=== PATIENT | male | born 1950 | race Caucasian/White ===

== ENCOUNTER → 2018-06-15 | Outpatient (CLI) | payer OTHER, MEDICARE | LOC: BHFA 13:30 | PROVIDERS: ATTEND Internal Medicine Interventional Cardiology | DX: I20.8 Other forms of angina pectoris (principal) ==

== ENCOUNTER 2018-06-16 07:31 | Day surgery (SDC) | payer OTHER, MEDICARE ==
[2018-06-16] MEDS ORDERED: NS 1,000 ML IV ONE (07:32)
[2018-06-16] MEDS ORDERED: diphenhydrAMINE 25 MG CAP PO ONE (07:32)
[2018-06-16] MEDS ORDERED: ASPIRIN EC 325 MG TAB PO ONE (07:32)
[2018-06-16] MEDS ORDERED: FAMOTIDINE 20 MG TAB PO ONE (07:32)
[2018-06-16] MEDS ORDERED: DIAZEPAM 5 MG TAB PO ONE (07:32)
--- NOTE | 2018-06-16 07:56 | PDHPUP ---
History & Physical Update H&P update statement: This history and physical update is based on an assessment of the patient which was completed after admission or registration (within 24 hours), but prior to the surgery/procedure. H&P update: H&P reviewed & patient examined, no change in patient's condition since H&P completed
--- NOTE | 2018-06-16 07:56 | PDPROPOC ---
Sedation Plan of Care Sedation Plan of Care: vital signs stable, mental status noted, patient educated of risks, benefits, alternatives, patient can tolerate sedation ASA Classification: ASA 2 Planned drugs: fentanyl, midazolam Mallampati Score: Class 1 Mallampati Reference Image: Patient passed 3-3-2 rule?: Yes
[2018-06-16 08:18] LABS: PLATELET COUNT 267 10^3/uL (150-400)
[2018-06-16 08:27] LABS: INR 0.9 (0.83-1.16); PROTIME(PATIENT) 12.4 SEC (12.0-15.0)
[2018-06-16] MEDS ORDERED: LIDOCAINE 1% 300 MG/30 ML SDV ONE (09:07)
[2018-06-16] MEDS ORDERED: HEPARIN 10,000 UNIT/10 ML MDV (1,000 UNIT/ML) ONE (09:08)
[2018-06-16] MEDS ORDERED: fentaNYL 100 MCG/2 ML INJ ONE (09:08)
[2018-06-16] MEDS ORDERED: VERAPAMIL 5 MG/2 ML VIAL ONE (09:08)
[2018-06-16] MEDS ORDERED: MIDAZOLAM 2 MG/2 ML VIAL ONE (09:08)
[2018-06-16] MEDS ORDERED: IOPAMIDOL (ISOVUE-370) 150 ML BTL IV ONE (09:09)
--- NOTE | 2018-06-16 10:36 | PDDXCAT ---
Diagnostic Cath Note - . Date: 06/16/18 Print Production Associate: Octavio Indication: CCC Class III and IV angina on medical treatment - Procedure Access: right wrist Procedure: left heart catheterization, coronary angiography, left ventriculogram , other (Ascending aortogram/strong family history of thoracic aortic aneurysms and sudden ) - Materials Left Heart Cath size: 5F Left Heart Cath materials: JL3.5, JR4.0, pigtail - Findings-Left Heart Catheterization LM: Unobstructed LAD: Calcific arteriosclerosis without obstruction LCX: Calcific arteriosclerosis without obstruction RCA: Dominant vessel: Unobstructed EDP: 10 mm of mercury LVEF: 65% Wall motion: Normal. Aortogram reveals no significant dilatation of the aorta within the field of view. Complications: None Estimated blood loss: <50ml Closure method: TR Band Assessment: No evidence of thoracic aortic aneurysm. Nonobstructive mild calcific arteriosclerosis. Preserved left ventricular systolic function with normal filling pressures Plan: Aggressive secondary prevention clinical follow-up
--- NOTE | 2018-06-16 16:02 | ECHO ---
[email or web address] [address] [address] Main: [phone] Fax: Transthoracic Echocardiogram Name: SUSAN COLORADO MR#: [id number] Study Date: 06/16/2018 Study Time: 09:56 AM Date of : 1950 Age: 67 year(s) Height: ( ) Weight: ( ) BSA: Gender: Male Examination: Echo Indication: Pre Cath, Murmur, laborer cutting tool Image Quality: Contrast: Requested by: Gary Cunningham BP: / Heart Rate: Rhythm: Indication: Pre Cath, Murmur, laborer cutting tool Procedure Staff Reference Services Head: Samir Mercado RDCS Reading Physician: Xu Garcia MD Requesting Provider: Conclusions: Normal size left ventricle. EF is 76 %. No regional wall motion abnormality. The left atrium is mildly dilated. Mild mitral valve leaflet calcification is present. Trivial mitral valve regurgitation. Mild aortic cusp calcification is noted. Mild to moderate aortic valve regurgitation. No aortic valve stenosis is present. There is no significant tricuspid valve regurgitation. No pericardial effusion. No prior study for comparison. Measurements: Chambers Valvular Assessment AV/MV Valvular Assessment TV/PV Normal Normal Normal Name Value Range Name Value Range Name Value Range Ao Stephanie (MM): 3.5 cm (2.2 cm-3.7 AV Vmax: 1.76 m/s (1 m/s-1.7 PV Vmax: 0.83 m/s (0.6 m/s-0.9 cm) m/s) m/s) IVSd (2D): 0.9 cm (0.6 cm-1.1 AV maxP mmHg ( - ) PV PGmax: 3 mmHg ( - ) cm) AV meanP mmHg ( - ) LVDd (2D): 4.9 cm (4.2 cm-5.9 LVOT Vmax: 0.88 m/s (0.7 m/s-1.1 cm) m/s) LVDs (2D): 2.7 cm (2.1 cm-4 JOVAN (Vmax): 1.6 cm2 ( - ) cm) JOVAN (VTI): 1.7 cm ( - ) LVPWd (2D): 1.0 cm (0.6 cm-1 AR (PHT): 742 ms ( - ) cm) LVOTd 2.0 cm 2.0 cm mm LVEF (2D): 76 (>=54 %) Patient: SSUAN COLORADO Study Date: 06/16/2018 Page 1 of 2 09:56 AM Continued Measurements: Chambers Valvular Assessment AV/MV Name Value Name Value LADs Lon.3 cm AR Vmax: 3.88 cm/s LA Area: 20.3 cm2 LA Volume: 62 ml Findings: Left Ventricle: Normal size left ventricle. Normal global systolic LV function. EF is 76 %. No regional wall motion abnormality. Right Ventricle: Normal size right ventricle. Normal RV function. Left Atrium: The left atrium is mildly dilated. Right Atrium: The right atrium is normal in size. Mitral Valve: Mild mitral valve leaflet calcification is present. Trivial mitral valve regurgitation. Aortic Valve: Mild aortic cusp calcification is noted. The aortic valve is tri-leaflet. Mild to moderate aortic valve regurgitation. No aortic valve stenosis is present. Tricuspid Valve: The tricuspid valve is normal in appearance and function. There is no significant tricuspid valve regurgitation. Pulmonic Valve: The pulmonic valve is normal in appearance and function. Aorta: The aorta is normal. Pericardium: No pericardial effusion. (No Signature Object) Patient: SUSAN COLORADO Study Date: 06/16/2018 Page 2 of 2 09:56 AM [id number]
--- NOTE | 2018-06-16 17:48 | CPEKG ---
Test Reason : OPEN Blood Pressure : / mmHG Vent. Rate : 052 BPM Atrial Rate : 052 BPM P-R Int : 204 ms QRS Dur : 094 ms QT Int : 432 ms P-R-T Axes : 075 073 052 degrees QTc Int : 402 ms Sinus rhythm Confirmed by Nghia Alas ([id number]) on 06/16/2018 5:47:46 PM Referred By: Confirmed By:Nghia Alas
== END 2018-06-16 13:33 | disposition home or self-care (01) ==
LOC: FCATH 07:31
PROVIDERS: ATTEND Internal Medicine Interventional Cardiology
PROC: B2151ZZ Fluoroscopy of Left Heart using Low Osmolar Contrast (ICD-10-PCS; principal; 2018-06-16)
PROC: 4A023N7 Measurement of Cardiac Sampling and Pressure, Left Heart, Percutaneous Approach (ICD-10-PCS; principal; 2018-06-16)
PROC: B2111ZZ Fluoroscopy of Multiple Coronary Arteries using Low Osmolar Contrast (ICD-10-PCS; principal; 2018-06-16)
DX: I25.119 Atherosclerotic heart disease of native coronary artery with unspecified angina pectoris (principal)
CPT/HCPCS: 93005; 93306; 93458; 93567; C1769; J1644; J2250; J3010; Q9967

== ENCOUNTER → 2018-10-19 | Outpatient (CLI) | payer OTHER, MEDICARE | LOC: CLAB 14:45 | PROVIDERS: ATTEND Physician Assistant Medical | DX: M16.12 Unilateral primary osteoarthritis, left hip (principal) | CPT/HCPCS: 73502-PO ==

== ENCOUNTER → 2018-11-28 | Outpatient (CLI) | payer OTHER, MEDICARE | LOC: EDSTATUS 07:10 → EMCIMAGING 18:57 | PROVIDERS: ATTEND Nurse Practitioner Family | DX: R05 Cough (principal); R06.02 Shortness of breath; Z87.891 Personal history of nicotine dependence ==

== ENCOUNTER → 2018-12-16 | Outpatient (CLI) | payer OTHER, MEDICARE | LOC: FIMAGING 12:34 | PROVIDERS: ATTEND Physician Assistant | DX: Z03.89 Encounter for observation for other suspected diseases and conditions ruled out (principal) ==

== ENCOUNTER 2019-02-03 12:01 | Inpatient (IN) | payer OTHER, MEDICARE ==
[~2019-02-03 12:01] MED LIST: ROPIVACAINE 0.2% 80 MG, EPINEPHrine 0.2 MG, KETOROLAC TROMETHAMINE 30 MG in SYRINGE 0 ML IU ONE; TRANEXAMIC ACID 3,000 MG in NS (SYRINGE) 50 ML IRR ONE; TRANEXAMIC ACID 3,000 MG/50 ML BAG IRR ONE
[2019-02-03] MEDS ORDERED: ACETAMINOPHEN 325 MG TAB PO ONE (12:32)
[2019-02-03] MEDS ORDERED: ceFAZolin 2 GM/DEXTROSE 100 ML IV ONE (12:32)
[2019-02-03] MEDS ORDERED: FAMOTIDINE 20 MG TAB PO ONE (12:32)
[2019-02-03] MEDS ORDERED: DEXAMETHASONE 4 MG/ML VIAL IVP ONE (12:32)
[2019-02-03] MEDS ORDERED: LIDOCAINE 1% 2 ML INJ ID PRN (12:33)
[2019-02-03] MEDS ORDERED: LR 1,000 ML IV ONE (12:33)
[2019-02-03] MEDS ORDERED: MIDAZOLAM 2 MG/2 ML VIAL IVP ONE (13:39)
[2019-02-03] MEDS ORDERED: PROMETHAZINE HCL 25 MG/ML INJ IVP PRN ×2 (13:39→15:39)
[2019-02-03] MEDS ORDERED: HYDROmorphONE/DILAUDID 1 MG/ML INJ IVP PRN (13:39)
[2019-02-03] MEDS ORDERED: fentaNYL 100 MCG/2 ML INJ IVP PRN (13:39)
[2019-02-03] MEDS ORDERED: ONDANSETRON 4 MG/2 ML VIAL IVP PRN ×2 (13:39→15:39)
[2019-02-03] MEDS ORDERED: NALOXONE HCL 0.4 MG/ML INJ IVP PRN (13:39)
[2019-02-03] MEDS ORDERED: oxyCODONE IR 5 MG TAB PO PRN ×2 (13:39→15:39)
[2019-02-03] MEDS ORDERED: MIDAZOLAM 2 MG/2 ML VIAL ONE (13:40)
--- NOTE | 2019-02-03 13:41 | PDANEPAE ---
ANE History of Present Illness L DADA ANE Past Medical History - Cardiovascular History Hx Hypertension: No Hx Arrhythmias: No Hx Chest Pain: No Hx Coronary Artery / Peripheral Vascular Disease: Yes Hx CHF / Valvular Disease: No Hx Palpitations: No - Pulmonary History Hx COPD: No Hx Asthma/Reactive Airway Disease: No Hx Recent Upper Respiratory Infection: Yes Hx Oxygen in Use at Home: No Hx Sleep Apnea: No Sleep Apnea Screening Result - Last Documented: Negative Pulmonary History Comment: FLU 11/2018 - Neurologic History Hx Cerebrovascular Accident: No Hx Seizures: No Hx Dementia: No - Endocrine History Hx Diabetes: No - Renal History Hx Renal Disorders: No - Liver History Hx Hepatic Disorders: No - Neurological & Psychiatric Hx Hx Neurological and Psychiatric Disorders: No - Cancer History Hx Cancer: No - Congenital Disorder History Hx Congenital Disorders: No - GI History Hx Gastrointestinal Disorders: No - Other Health History Other Health History: NONE - Chronic Pain History Chronic Pain: Yes (LT HIP,RT KNEE) - Surgical History Prior Surgeries: LT LEG ORIF. RT LEG CHANGED ANGLE OF LEG BY 15 DEGREES. RT KNEE SCOPE ANE Review of Systems Review of Systems: - Exercise capacity METS (RN): 6 METS ANE Patient History - Allergies Allergies/Adverse Reactions: No Known Allergies Allergy (Verified 01/21/19 13:43) - Home Medications Home Medications: NK [No Known Home Meds] 01/21/19 [Last Taken Unknown] - NPO status NPO Since - Liquids (Date): 02/03/19 NPO Since - Liquids (Time): 11:00 NPO Since - Solids (Date): 02/02/19 NPO Since - Solids (Time): 22:00 - Smoking Hx Smoking Status: Former smoker ANE Labs/Vital Signs - Vital Signs Blood Pressure: 125/78 Heart Rate: 51 Respiratory Rate: 16 O2 Sat (%): 98 Height: 173.99 cm Weight: 77.111 kg ANE Physical Exam - Airway Neck exam: FROM Mallampati Score: Class 2 Mouth exam: normal dental/mouth exam - Pulmonary Pulmonary: clear to auscultation - Cardiovascular Cardiovascular: regular rate and rhythym - ASA Status ASA Status: I ANE Anesthesia Plan Anesthesia Plan: spinal
[2019-02-03] MEDS ORDERED: PROPOFOL/EMULSION 500 MG/50 ML BOTTLE IV ONE (13:54)
[2019-02-03] MEDS ORDERED: PROPOFOL 200 MG/20 ML VIAL ONE (13:57)
[2019-02-03] MEDS ORDERED: BUPIVACAINE/DEXTROSE 7.5MG/ML 2 ML SPINAL AMP SP ONE (14:08)
[2019-02-03] MEDS ORDERED: ePHEDrine SULFATE 25 MG/5 ML SYR ONE (14:53)
[2019-02-03] MEDS ORDERED: DIPHENOXYLATE/ATROPINE LOMOTIL 1 TAB PO PRN (15:39)
[2019-02-03] MEDS ORDERED: MAGNESIUM HYDROXIDE 30 ML UDCUP PO PRN (15:39)
[2019-02-03] MEDS ORDERED: TEMAZEPAM 15 MG CAP PO PRN (15:39)
[2019-02-03] MEDS ORDERED: BISACODYL 10 MG SUPP PR PRN (15:39)
[2019-02-03] MEDS ORDERED: METOCLOPRAMIDE 10 MG/2 ML VIAL IVP PRN (15:39)
[2019-02-03] MEDS ORDERED: PROMETHAZINE HCL 25 MG SUPPR PR PRN (15:39)
[2019-02-03] MEDS ORDERED: POLYETHYLENE GLYCOL 3350 17 GM PKT PO PRN (15:39)
[2019-02-03] MEDS ORDERED: LACTULOSE 20 GM/30 ML UDCUP PO PRN (15:39)
[2019-02-03] MEDS ORDERED: ONDANSETRON DISINTEGRATING 4 MG TAB PO PRN (15:39)
[2019-02-03] MEDS ORDERED: CYCLOBENZAPRINE 10 MG TAB PO PRN (15:39)
[2019-02-03] MEDS ORDERED: diphenhydrAMINE 25 MG CAP PO PRN (15:39)
--- NOTE | 2019-02-03 15:40 | POSTOPPROG ---
Post Op Note Date of Operation: 02/03/19 Surgeon: Glenny Caballero Cord Maker: Josselyn Reyes PAC Anesthesiologist: Dr Manish Antonio Anesthesia: Spinal Pre-op Diagnosis: left hip OA Post-op Diagnosis: same Indication: left hip pain Procedure: LTHA Findings: severe OA of left hip Inf/Abcess present in the surg proc area at time of surgery?: No EBL: 50-100
--- NOTE | 2019-02-03 15:49 | POSTANESTH ---
Post Anesthetic Evaluation Cardiovascular Status: Normal, Stable Respiratory Status: Normal, Stable Level of Consciousness/Mental Status: Can Participate in Eval, Alert and Oriented Pain Control: Adequate, Prn Tx Ordered Nausea/Vomiting Control: Adequate, Prn Tx Ordered Complications Possibly Related to Anesthesia: None Noted
--- NOTE | 2019-02-03 15:54 | PDMN ---
Medical Necessity Medical necessity: [facility] IP only surgery; cpt 40513 L DADA
[2019-02-03] MEDS ORDERED: LR 1,000 ML IV SCH (16:00)
[2019-02-03] MEDS: ACETAMINOPHEN 325 MG TAB PO SCH (21:59)
[2019-02-03] MEDS: FAMOTIDINE 20 MG TAB PO SCH (22:00)
[2019-02-03] MEDS: SENNOSIDES/DOCUSATE SODIUM TAB PO SCH (22:00)
[2019-02-03] MEDS: ceFAZolin 2 GM/DEXTROSE 100 ML IV SCH (22:00)
[2019-02-03] MEDS: ASPIRIN 81 MG CHEWABLE TAB PO SCH (22:00)
[2019-02-04] MEDS: ACETAMINOPHEN 325 MG TAB PO SCH ×2 (04:26→11:09)
[2019-02-04] MEDS: ceFAZolin 2 GM/DEXTROSE 100 ML IV SCH (06:24)
[2019-02-04 07:43] VITALS: BP 105/60
--- NOTE | 2019-02-04 07:53 | SOAPPROG ---
SOAP Progress Note Assessment/Plan: Assessment: 68 year old male s/p left DADA, anterior approach - POD 1 Doing well Anemia - expected initially post-op, asymptomatic, continue to monitor Plan: Continue d/c planning - patient is doing better than expected, he will be going home today, will have support of his Continue PT efforts - WBAT, anterior hip precautions. Needs to be cleared by PT prior to d/c Continue oral pain medications - oxycodone, tylenol, celebrex, flexeril Continue VTE ppx - aspirin 81 mg BID, DONNY greene, SCDs 02/04/19 07:58 Subjective: Patient states he is doing good, he feels well enough to go home today. He will have the support of his at home. He denies SOB, CP, fever, chills. Objective: Vital Signs Temp Pulse Resp BP Pulse Ox 36.6 C 82 18 117/68 94 02/04/19 04:00 02/04/19 04:00 02/04/19 04:00 02/04/19 04:00 02/04/19 04:00 Laboratory Results 02/04/19 04:19 02/03/19 02/04/19 02/05/19 05:59 05:59 05:59 Intake Total 1070 Output Total 1200 Balance -130 Patient lying in bed, no acute distress. LLE: Wound dressings on the anterior aspect of the left hip are clean, dry and intact. Lower leg compartments are soft and nontender. He can actively DF and PF the left foot and great toe against resistance. Grossly NVI distally. ICD10 Worksheet Patient Problems: Problems Problem Status Onset Unilateral primary osteoarthritis, left hip Acute - ICD10 Problem Qualifiers (1) Unilateral primary osteoarthritis, left hip
--- NOTE | 2019-02-04 08:03 | PDDCSUM ---
Discharge Summary Discharge Summary: ADMISSION DIAGNOSIS: Left hip severe degenerative arthritis DISCHARGE DIAGNOSIS: Left hip severe degenerative arthritis OPERATION PERFORMED: February 03, 2019, Left total hip arthroplasty, anterior approach POSTOPERATIVE COMPLICATIONS: None CONDITION ON DISCHARGE: Improved HPI: The patient is a 68 year old male who has end-stage arthritis of his left hip. Clinical and radiographic features are consistent with this. Patient has failed attempts at conservative management, therefore, recommended operative left total hip replacement. DESCRIPTION OF HOSPITAL COURSE: The patient was admitted to the hospital on the morning of surgery and underwent a left total hip arthroplasty, anterior approach. Postoperatively, patient was treated with multimodal DVT prophylaxis, including aspirin, SCDs, DONNY hose. Patient was seen by PT and made good progress with ambulation and stairs. On the first post-operative day the patient s H&H was 13.1/39.9. Patient was able to void spontaneously. At the time of discharge, patient was afebrile, wound was clean and dry. Patient is walking with a walker. DISPOSITION: The patient is discharged home with the support of his and may have outpatient PT in approximately 3 weeks. Patient may progress to full weightbearing on the left lower extremity as tolerated. DONNY stockings for 2 weeks during the daytime. Aspirin 81 mg BID for 4 weeks. Patient has prescriptions for Celebrex, oxycodone, flexeril for pain control and muscle spasms. The patient will be seen by Dr. Babb office in approximately 3 weeks. If there are any problems, patient is to call Dr. Babb office.
[2019-02-04] MEDS: SENNOSIDES/DOCUSATE SODIUM TAB PO SCH (08:32)
[2019-02-04] MEDS: ASPIRIN 81 MG CHEWABLE TAB PO SCH (08:32)
[2019-02-04] MEDS: FAMOTIDINE 20 MG TAB PO SCH (08:32)
--- NOTE | 2019-02-04 09:31 | GOP ---
[f rep st] OPERATIVE REPORT DATE OF OPERATION: 02/03/2019 SURGEON: Rick Caballero MD SYRUP MAKER COOK: Alisson Reyes PA-C. ANESTHESIA: Spinal. PREOPERATIVE DIAGNOSIS: Left hip osteoarthritis. POSTOPERATIVE DIAGNOSIS: Left hip osteoarthritis. PROCEDURE PERFORMED: Total hip arthroplasty with x-ray. FINDINGS: ESTIMATED BLOOD LOSS: 200 cc. INDICATIONS: The patient has progressively worsening arthritis of the hip which has failed medical m anagement. The patient understands the treatment options including continued non-operative care and has selected surgical intervention. The patient has decided to undergo total hip arthroplasty via th e direct anterior approach, understanding the risks of the procedure including, but not limited to, n eurovascular injury, infection, persistent pain, component wear and loosening, deep venous thrombosis , pulmonary embolism, limb length inequality, hip instability (including dislocation), and intra-oper ative fractures. DESCRIPTION OF PROCEDURE: After proper identification of the patient including verification and radha ing the surgical site, the patient was brought to the operating room and placed in the supine positio n. All bony prominences were well padded. Anesthesia was induced without complication and intraveno us prophylactic antibiotics were administered prior to skin incision. The operative leg was placed in the Trumpf Arch table extension and the well leg in a Yellofin leg ho lder. The patient was prepped and draped in the usual sterile fashion. The C-arm was draped for int ra-operative fluoroscopy to check acetabular position, femoral component position including leg lengt h and femoral offset. Attention was then drawn to surgical exposure of the hip. An incision was made with a #10 Bard Joel r blade starting 3 cm lateral and 3 cm distal to the anterior superior iliac spine measuring 8-10 cm and coursing distally toward the greater trochanter. The skin and subcutaneous tissues were divided sharply down to the fascia ramirez. The fascia ramirez was incised in line with the skin incision exposing the underlying tensor fascia ramirez muscle. The muscle was bluntly elevated from the fascia and the f irst extracapsular Cobra retractor was placed laterally at the junction of the superior femoral neck and greater trochanter. The lateral femoral circumflex vessels were identified, cauterized, and divi ded with the Aquamantys bipolar cautery. The deep investing fascia of the TFL was divided to allow p regina mobilization of the muscle preventing damage during the retraction. The reflected head of the rectus femoris muscle was elevated off the anterior hip capsule and a medial Cobra retractor was plac ed just proximal to the lesser trochanter. The anterior capsulotomy was made sharply from the superolateral acetabulum to the saddle junction of the superior femoral neck and greater trochanter, then coursing inferomedial towards the lesser troc hanter. The retractors were then placed in the intracapsular position for femoral neck osteotomy. C orresponding to pre-operative templating, the osteotomy was made with the oscillating saw carefully p rotecting the greater trochanter and soft tissues. The femoral head was removed from the acetabulum with a corkscrew and confirmed to be severely arthritic with exposed bone, deformity and osteophytes. Similar findings were confirmed in the acetabulum. The Arch table extension was then placed in 40 degrees external rotation. Attention was then drawn to the acetabular preparation. After placement of the anterior and posterio r Cobra retractors outside the labrum and intracapsular, the circumferential labrum was removed sharp ly. The foveal contents were then removed and hemostasis obtained with cautery. The first reamer selected was sized using the removed femoral head. Reaming began with medialization and then commenced in 2 mm increments at 45 degrees of abduction and 15 degrees of anteversion using fluoroscopic navigation. Reaming ceased 1 mm less than the definitive acetabular component and tru esponded to the pre-operative templating. The final acetabular component was inserted using fluorosc opy to achieve proper orientation yielding excellent purchase and stability in the acetabulum. The f inal acetabular liner was then placed and its seating confirmed. Attention was then turned to the femur. The Arch table extension was placed in extension and adducti on, delivering the osteotomized femoral neck into the wound. A 2-pronged femoral elevator was placed at the calcar and another at the tip of the greater trochanter. The posterolateral capsule was rele ased with cautery allowing mobilization of the femur lateral and anterior for preparation. The exter nal rotators were visualized and preserved. A curette and rongeur were used to open the starting poi nt for broaching. Serial broaching started with the #0 broach and ended with the broach that exhibit ed excellent fit in the proximal femur. A change in pitch during mallet strikes was accompanied by t he inability to advance the broach any further. The trial reduction was performed and fluoroscopic n avigation was utilized to check limb length. Adjustments were made to equalize limb length according ly. After the final trials were accepted they were removed and the wound was copiously lavaged. The femo ral component was seated to the same depth as the final broach and the femoral head was impacted onto the clean trunnion. The hip was then reduced for the final time and once more fluoroscopy was used to check that limb length equality was achieved. The wound was irrigated and closed in layers, the fascia ramirez with 2-0 Quill, the subcutaneous tissue with 2-0 Quill, and the skin with Dermabond. Sterile dressings were applied. Final sharps and spon ge counts were accurate. The patient was then transferred to a hospital bed and brought to the [facility] room in stable condition. IMPLANTS: Accolade II size 5 at 125, acetabular component is a Trident II 54 mm , 36 mm, h ead is a Biolox delta 36 mm +2.5. /[id number]/MODL
--- NOTE | 2019-02-04 10:00 | ASMTLACE ---
LACE Length of stay for Answers: 1 day current admission Acuity / Level of Answers: Yes Care: Did the patient have an inpatient admission? Comorbidities - select Answers: Other Notes: elevated cholesterol all that apply # of Emergency department Answers: 0 visits in the last 6 months Score: 5 Date Signed: 02/04/2019 09:59 AM Electronically Signed By:ADA Rivas
== END 2019-02-04 11:56 | disposition home or self-care (01) | DRG 470 ==
LOC: F3N 12:01
PROVIDERS: ADMIT Orthopaedic Surgery; ATTEND Orthopaedic Surgery
PROC: 0SRB04Z Replacement of Left Hip Joint with Ceramic on Polyethylene Synthetic Substitute, Open Approach (ICD-10-PCS; principal; 2019-02-03 14:00)
DX: M16.12 Unilateral primary osteoarthritis, left hip (principal); E78.00 Pure hypercholesterolemia, unspecified; I25.10 Atherosclerotic heart disease of native coronary artery without angina pectoris; I35.1 Nonrheumatic aortic (valve) insufficiency
CPT/HCPCS: 97161-GP; J0171; J0690; J1100; J1885; J2250; J2704; J2795